=== PATIENT | male | born 1985 | race Caucasian/White ===

== ENCOUNTER 2017-09-23 16:59 | Emergency (ER) | payer OTHER ==
[~2017-09-23 16:59] MED LIST: ALBU8.5H12 IH; CLIN300C99 PO; HYDR-4309 PO; PRED20TA6 PO
--- NOTE | 2017-09-23 17:04 | ER Report ---
History and Physical Time Seen By : 17:03 HPI/ROS CHIEF COMPLAINT: r lower leg pain HISTORY OF PRESENT ILLNESS: Pt had a crush injury to r lower leg when a steal beam landed on lower leg at work in [place]. Pt has fx tib/fib and had surgery in [place]. Pt knows he has pins and a lesley. Pt States that he has been in constant pain since it occurred. ran out of his percocet which was a total of 40 pills. Pt noticed some blood on his splint and called his surgeon in [place] and was told he can look at the suture area. Pt took off his splint and did not see any active bleeding. Rebandaged his leg and still in pain so came to ed. Pt has a recheck appointment in [place] on september 28 which is his first post op appt. Pt states after that appt he is able to change his orthopedist to a local ortho doctor here. Came to ed concerned about the blood and the pain. pt denies sob or cp. no fevers no parathesias REVIEW OF SYSTEMS: Skin: ecchymosis lower leg; sutures/lul Musculoskeletal: R lower leg pain and swelling Allergies: Coded Allergies: Penicillins (Unverified Allergy, Intermediate, RASH, 02/28/14) Home Meds Active Scripts Oxycodone Hcl/Acetaminophen (OXYCODONE-ACETAMINOPHEN 5-325) 1 Each Tablet, 1 EACH PO Q4-6H Y for PAIN, #30 TAB Prov:LAURORAYANIQUEDOUGIE V DO 09/23/17 Oxycodone Hcl/Acetaminophen (OXYCODONE-ACETAMINOPHEN 5-325) 1 Each Tablet, 1 EACH PO Q4-6H Y for pain, #30 TAB Prov:DOUGIE TEJADA V DO 09/23/17 Hydrocodone Bit/Acetaminophen (NORCO 5-325 TABLET) 1 Each Tablet, 1 EACH PO Q6H , #20 TAB Prov:NICOLE FOFANA MD 02/28/14 Clindamycin Hcl (CLINDAMYCIN HCL) 300 Mg Capsule, 300 MG PO TID, #21 CAPSULE Prov:NICOLE FOFANA MD 02/28/14 Reported Medications [stool soft] No Conflict Check 09/23/17 Discontinued Scripts Albuterol Sul Hfa 90 Mcg 8 Gm (VENTOLIN HFA 90 MCG 8 GM) 8.5 Gm Hfa.aer.ad, 2 PUFF IH Q4-6H Y for WHEEZING, #1 INHALER 0 Refills Prov:SHAJI CARRASCO MD 01/09/14 Past Medical/Surgical History pmhx: asthma Pshx: tib/fib fx Reviewed Nurses Notes: Yes Old Medical Records Reviewed: Yes Hx Smoking: Yes Smoking Status: Current: Some Days Smoker Exposure to Second Hand Smoke?: Yes Hx Substance Use Disorder: No Hx Alcohol Use: No Constitutional Vital Sign - Last 24 Hours 09/23/17 17:22 Temp 98.3 Pulse 95 Resp 16 B/P (MAP) 136/88 Pulse Ox 97 O2 Delivery Room Air Physical Exam General Appearance: The patient is alert, has no immediate need for airway protection and no signs of toxicity. Eyes: Pupils equal and round no pallor or injection, EOMI ENT: no pharyngeal erythema or exudates, Mucous membranes are moist Respiratory: There are no retractions, lungs are clear to auscultation. Neurological: Cranial nerves II-XII grossly intact, no sensory or motor loss Skin: + old/yellow appearing ecchymosis r lower leg from knee down; + lul above knee on right are clean and dry; sutures medial aspect of r lower leg are not bleeding and appear dry and intact without erythema Musculoskeletal: Neck is supple non tender, no vertebral tenderness Extremities all extremities excluding the right are nontender, nonswollen and have full range of motion, R lower leg shows non tender thigh; removal of splint with leg stabilization showed swelling to r lower leg with ecchymosis and diffuse tenderness; pulses were symmetrical. cap refil <2 seconds, there is no hardness to the muscle, splint was placed back on DIFFERENTIAL DIAGNOSIS: After history and physical exam differential diagnosis was considered for dvt, post op pain Medical Decision Making ED Course/Re-evaluation ED Course Will xray to check lesley placement. will obtain US to check for any clots due to immobilization and travel. Pt is 12 days post up. Do no suspect rhabdo or compartment syndrome at this time. 09/23/2017 5:53:49 pm Script for percocet initialy sent to [facility]. Pharmacist called and they are out of percocet in all dosages but believe [facility] has the medication. Called [facility]. [facility] does in fact have percocet. Script for 30 pills was canceled by [facility] and [facility] 09/23/2017 6:05:45 pm Pts xrays show the lesley in good placement but the fibula displaced. Pt has imaging from [facility] with him in and it shows the fibula not touching at that time as well. Pt states he feels his leg is unstable. Pts posterior splint is fitting well. will add on a sugar tong splint for pts comfort. signed out to dr. gold pending dvt results. Decision to Disposition Date: September 23, 2017 Decision to Disposition Time: 18:08 Depart Departure Latest Vital Signs Vital Signs Date Time Temp Pulse Resp B/P (MAP) Pulse Ox O2 Delivery O2 Flow Rate FiO2 09/23/17 17:22 98.3 95 16 136/88 97 Room Air Impression: Primary Impression: Leg pain, right Additional Impression: Post-op pain Condition: Improved Disposition: HOME OR SELF-CARE New Scripts Oxycodone Hcl/Acetaminophen (OXYCODONE-ACETAMINOPHEN 5-325) 1 Each Tablet 1 EACH PO Q4-6H Y for PAIN, #30 TAB Prov: DOUGIE TEJADA DO 09/23/17 Oxycodone Hcl/Acetaminophen (OXYCODONE-ACETAMINOPHEN 5-325) 1 Each Tablet 1 EACH PO Q4-6H Y for pain, #30 TAB Prov: DOUGIE TEJADA DO 09/23/17 Patient Instructions: Leg Fracture (DC) Additional Instructions: Keep leg in splint. Elevate, ice and rest. Percocet one or two every 4-6 hours as needed for severe pain. Your script is at [facility]. Keep your appointment with orthopedics on the . Problem Qualifiers DOUGIE TEJADA DO September 23, 2017 17:04
[2017-09-23] MEDS ORDERED: HYDROmorphone* 1 MG/ML 1 MG/ML ML IM ONE (17:20)
[2017-09-23] MEDS ORDERED: PER PO (17:41)
[2017-09-23] MEDS ORDERED: OXYC-373 PO ×2 (17:43→17:54)
[2017-09-23] MEDS ORDERED: STOOL SOFT (17:44)
--- NOTE | 2017-09-23 18:02 | RADIOLOGY IMAGING REPORT ---
FAC[place] [facility] [place]IENT NAME: Bob Lester : 1985 MR: [id number] V: [id number] EXAM DATE: ORDERING PHYSICIAN: DOUGIE TEJADA TECHNOLOGIST: Location: [facility] Patient: Bob Lester : 1985 Visit/Account:[id number] Date of Sevice: 09/23/2017 Right tibia/fibula Indication: Pain. Recent surgery. Comparison: None available Findings: Two views right tibia and fibula. Intramedullary lesley within the tibia with single proximal and 2 distal interlocking screws, traversing a distal tibial shaft fracture which is in anatomic alignment. No visualized hardware complication. Comminuted fracture involving the distal third fibular shaft with approximately 5 mm medial displacem ent of the distal fracture fragment. Soft tissue swelling within the distal calf and ankle. IMPRESSION: 1. Distal tibial fracture with intramedullary lesley without visualized hardware complication. Fracture is in anatomic alignment. 2. Mildly displaced comminuted distal fibular diaphysis fracture. 3. Soft tissue swelling surrounding the distal calf and ankle Report Dictated By: Bill Nuno MD at 09/23/2017 5:56 PM Report E-Signed By: Bill Nuno MD at 09/23/2017 6:00 PM WSN:[id number]
[2017-09-23] MEDS ORDERED: oxyCODONE/ACETAMIN 5/325MG TH 2 TAB/BOTTLE PO ONE (18:15)
[2017-09-23 18:30] VITALS: BP 115/86
--- NOTE | 2017-09-23 18:38 | RADIOLOGY IMAGING REPORT ---
FACILITY: [facility] - [place], [place] PATIENT NAME: Bob Lester : 1985 MR: [id number] V: [id number] EXAM DATE: ORDERING PHYSICIAN: DOUGIE TEJADA TECHNOLOGIST: Location: [facility] - [place] Patient: Bob Lester : 1985 Visit/Account:[id number] Date of Sevice: 09/23/2017 EXAMINATION: VENOUS DOPP LOW RIGHT EXTREMIT COMPARISON: None Available HISTORY: leg pain; recent tib/fib surgery for fx/crush injury FINDINGS: Standard right lower extremity Doppler ultrasound with color flow and spectral analysis is performed. The common femoral, femoral, and popliteal veins are widely patent and compress appropriately. The v isualized calf veins and the proximal greater saphenous vein are patent. No popliteal fluid collection. IMPRESSION: No right lower extremity deep venous thrombosis. Report Dictated By: Joshua Darby MD at 09/23/2017 6:34 PM Report E-Signed By: Joshua Darby MD at 09/23/2017 6:35 PM WSN:[id number]
== END 2017-09-23 18:56 | disposition home or self-care (01) ==
LOC: ER 17:28
DX: G89.18 Other acute postprocedural pain (principal); M79.661 Pain in right lower leg; Z98.890 Other specified postprocedural states
CPT/HCPCS: 73590; 93971; 96372; 99284; J1170

== ENCOUNTER 2017-11-02 11:05 | Emergency (ER) | payer OTHER ==
[~2017-11-02 11:05] MED LIST changes: +OXYC-373 PO; +PER PO; +STOOL SOFT
[2017-11-02] MEDS ORDERED: NS(*) 0.9% 1000 ML BAG 1,000 ML IV ONE (11:34)
--- NOTE | 2017-11-02 11:34 | ER Report ---
History and Physical Time Seen By MD: 11:18 Hx. of Stated Complaint: PATIENT REPORTS HAVING RIGHT LEG SURGERY FOR A TRAUMA THAT HAPPENED IN AUGUST. HE IS REPORTING RIGHT ANKLE SWELLING FOT THE LAST 3 DAYS AND IS ALSO REPORTING THAT HE IS COUGHING UP BLOOD HPI/ROS Chief Complaint: Increased swelling in right leg HPI: 32-year-old male presents with increased right leg swelling and productive cough with some blood. States he had surgery for a tibia and fibula fracture that he sustained while at work. The surgery was completed in [place] on 09/12/17. Reports some difficulty accessing follow up because the event was an out of state workman's compensation. He reports his last ultra-sound and x-ray on 09/23/17 was normal. States, his last orthopedic follow up was 09/28/17 in [place]. He has plans to start physical therapy in late October. Not currently taking any medications. Reports elevation of the extremity usually decreases the swelling but it has not improved for the past three days. State, " something is just off." Reports his cough started about a week ago but he coughed up blood this morning. Reports no associated symptoms, and no treatments tried. ROS: General: denies fevers, chills, or night sweats HEENT: denies headaches, reports mild maxillary sinus pressure, denies sore throat Respiratory: denies shortness of breath CV: denies chest pain GI: denies nausea, vomiting, constipation, or diarrhea : denies changes in urination Musculoskeletal: reports swelling of the right ankle Allergies: Coded Allergies: Penicillins (Unverified Allergy, Intermediate, RASH, 02/28/14) Home Meds Active Scripts Rivaroxaban 15 Mg (XARELTO 15 MG) 15 Mg Tablet, 15 MG PO BID for 21 Days, #42 TAB Prov:KALLIE GRAY 11/02/17 Discontinued Reported Medications [stool soft] No Conflict Check 09/23/17 Discontinued Scripts Oxycodone Hcl/Acetaminophen (OXYCODONE-ACETAMINOPHEN 5-325) 1 Each Tablet, 1 EACH PO Q4-6H Y for PAIN, #30 TAB Prov:LAURORA,DOUGIE V DO 09/23/17 Oxycodone Hcl/Acetaminophen (OXYCODONE-ACETAMINOPHEN 5-325) 1 Each Tablet, 1 EACH PO Q4-6H Y for pain, #30 TAB Prov:LAURORA,DOUGIE V DO 09/23/17 Hydrocodone Bit/Acetaminophen (NORCO 5-325 TABLET) 1 Each Tablet, 1 EACH PO Q6H , #20 TAB Prov:NICOLE FOFANA MD 02/28/14 Clindamycin Hcl (CLINDAMYCIN HCL) 300 Mg Capsule, 300 MG PO TID, #21 CAPSULE Prov:NICOLE FOFANA MD 02/28/14 Past Medical/Surgical History tibia/fibula fracture surgery September 12, 2017 Reviewed Nurses Notes: Yes Hx Smoking: Yes Smoking Status: Current: Some Days Smoker Exposure to Second Hand Smoke?: Yes Hx Substance Use Disorder: No Hx Alcohol Use: No Constitutional Vital Sign - Last 24 Hours 11/02/17 11/02/17 11/02/17 11/02/17 11:11 11:12 11:20 11:30 Temp 98.6 Pulse 86 91 Resp 24 B/P (MAP) 159/100 159/100 (119) 153/106 (122) Pulse Ox 97 97 O2 Delivery Room Air 11/02/17 11/02/17 11/02/17 11/02/17 11:35 12:00 12:05 12:20 Pulse 89 75 71 Resp 9 12 B/P (MAP) 131/93 (106) Pulse Ox 98 98 96 11/02/17 11/02/17 12:30 12:35 Pulse 73 Resp 27 B/P (MAP) 129/90 (103) Pulse Ox 98 Intake and Output 11/02/17 11/02/17 11/03/17 15:00 23:00 07:00 Intake Total 1000 ml Balance 1000 ml Physical Exam Physical Examination: General: 32-year-old male in no acute distress HEENT: normocephalic, atraumatic, pupils round and reactive to light and accommodation, TMs BL gian carey, no rhinorrhea, tonsils 2+ no erythema BL Respiratory: CTA BL CV: Clear S1 S2, no murmurs GI: normoactive BS x4, no tenderness to palpation, no hepatomegaly, no splenomegaly Musculoskeletal: Right ankle with decreased ROM with internal and external rotation as well as, dorsiflexion and plantar flexion, full free ROM of the left lower extremity Differential Diagnoses Considered: DVT, PE, Displacement of the hardware, re- injury, and infection. Medical Decision Making Data Points Result Diagram: 11/02/17 1130 11/02/17 1130 Laboratory Hematology Test 11/02/17 11:30 Red Blood Count 5.79 M/uL (4.00-5.60) Mean Corpuscular Volume 89.2 fL (80.0-96.0) Mean Corpuscular Hemoglobin 31.0 pg (26.0-33.0) Mean Corpuscular Hemoglobin Concent 34.8 g/dL (32.0-36.0) Red Cell Distribution Width 12.3 % (11.5-14.5) Mean Platelet Volume 9.1 fL (7.2-11.1) Neutrophils (%) (Auto) 54.4 % (39.4-72.5) Lymphocytes (%) (Auto) 36.3 % (17.6-49.6) Monocytes (%) (Auto) 5.2 % (4.1-12.4) Eosinophils (%) (Auto) 3.5 % (0.4-6.7) Basophils (%) (Auto) 0.6 % (0.3-1.4) Nucleated RBC Relative Count (auto) 0.1 /100WBC Neutrophils # (Auto) 4.3 K/uL (2.0-7.4) Lymphocytes # (Auto) 2.8 K/uL (1.3-3.6) Monocytes # (Auto) 0.4 K/uL (0.3-1.0) Eosinophils # (Auto) 0.3 K/uL (0.0-0.5) Basophils # (Auto) 0.0 K/uL (0.0-0.1) Nucleated RBC Absolute Count (auto) 0.01 K/uL Sodium Level 138 mmol/L (137-145) Potassium Level 4.0 mmol/L (3.5-5.0) Chloride Level 101 mmol/L (98-107) Carbon Dioxide Level 27 mmol/L (22-30) Blood Urea Nitrogen 10 mg/dl (9-21) Creatinine 1.10 mg/dl (0.66-1.25) Glomerular Filtration Rate Calc > 60.0 Random Glucose 118 mg/dl (75-110) Calcium Level 9.6 mg/dl (8.4-10.2) Total Bilirubin 0.8 mg/dl (0.2-1.3) Aspartate Amino Transf (AST/SGOT) 25 U/L (0-35) Alanine Aminotransferase (ALT/SGPT) 24 U/L (0-56) Alkaline Phosphatase 96 U/L (0-126) Troponin I < 0.012 ng/ml B-Type Natriuretic Peptide 21 pg/ml (0-100) Total Protein 8.0 g/dl (6.3-8.2) Albumin 4.2 g/dl (3.5-5.0) Chemistry Test 11/02/17 11:30 White Blood Count 7.8 k/uL (4.5-11.0) Red Blood Count 5.79 M/uL (4.00-5.60) Hemoglobin 18.0 g/dL (14.0-18.0) Hematocrit 51.7 % (42.0-52.0) Mean Corpuscular Volume 89.2 fL (80.0-96.0) Mean Corpuscular Hemoglobin 31.0 pg (26.0-33.0) Mean Corpuscular Hemoglobin Concent 34.8 g/dL (32.0-36.0) Red Cell Distribution Width 12.3 % (11.5-14.5) Platelet Count 164 K/uL (150-450) Mean Platelet Volume 9.1 fL (7.2-11.1) Neutrophils (%) (Auto) 54.4 % (39.4-72.5) Lymphocytes (%) (Auto) 36.3 % (17.6-49.6) Monocytes (%) (Auto) 5.2 % (4.1-12.4) Eosinophils (%) (Auto) 3.5 % (0.4-6.7) Basophils (%) (Auto) 0.6 % (0.3-1.4) Nucleated RBC Relative Count (auto) 0.1 /100WBC Neutrophils # (Auto) 4.3 K/uL (2.0-7.4) Lymphocytes # (Auto) 2.8 K/uL (1.3-3.6) Monocytes # (Auto) 0.4 K/uL (0.3-1.0) Eosinophils # (Auto) 0.3 K/uL (0.0-0.5) Basophils # (Auto) 0.0 K/uL (0.0-0.1) Nucleated RBC Absolute Count (auto) 0.01 K/uL Glomerular Filtration Rate Calc > 60.0 Calcium Level 9.6 mg/dl (8.4-10.2) Total Bilirubin 0.8 mg/dl (0.2-1.3) Aspartate Amino Transf (AST/SGOT) 25 U/L (0-35) Alanine Aminotransferase (ALT/SGPT) 24 U/L (0-56) Alkaline Phosphatase 96 U/L (0-126) Troponin I < 0.012 ng/ml B-Type Natriuretic Peptide 21 pg/ml (0-100) Total Protein 8.0 g/dl (6.3-8.2) Albumin 4.2 g/dl (3.5-5.0) EKG/Imaging EKG Interpretation ECG obtained at 11:43 results indicate normal sinus rhythm. Imaging CTA CHEST WW/O CNTR (PULM ANG) COMPARISON: None. HISTORY: coughing up blood. TECHNIQUE: Axial CT angiography of the chest with intravenous contrast. Coronal and sagittal reformats. Coronal MIP reconstructions were also created for further evaluation and interpretation. One of the following dose optimization techniques was utilized in the performance of this exam: automated exposure control; adjustment of the mA and/ or kV according to patient size; or use of iterative reconstruction technique. Specific details can be referenced in the facility's radiology CT exam operational policy. CONTRAST: 75 mL of IV Isovue-370. CT CHEST FINDINGS: CARDIAC: Unremarkable. RV/LV ratio is 0.84. MEDIASTINUM/NICKY: No significantly enlarged lymph nodes or mass. Prominent right hilar nodes considered reactive. VASCULATURE: Cardiac pulsation artifact in the ascending aorta. Numerous small pulmonary artery filling defects consistent with acute pulmonary emboli in lobar and segmental branches of the right lower lobe. No left-sided pulmonary emboli to the proximal segmental level. CHEST WALL: Unremarkable. No mass or axillary adenopathy. LUNGS/PLEURA: 2.5 cm region of peripheral consolidation in the right lower lobe consistent with acute pulmonary infarct. 3 mm right upper lobe nodule series 4 image 93, 4 x 5 mm left lower lobe nodule image 189, nonspecific. 3 mm left upper lobe nodule series 4 image 19. No other consolidation and no pleural effusion. Patent central airways. Mild pleural parenchymal scarring in the upper lobes. BONES: Unremarkable. LIMITED ABDOMEN: Unremarkable. OTHER: Negative. IMPRESSION: 1. Multiple small acute lobar and segmental level right lower lobe pulmonary emboli with an associated 2.5 cm pulmonary infarct in the right lower lobe. 2. Small lung nodules measuring up to 4.5 mm average diameter. These are probably benign and incidental. In the absence of risk factors for malignancy or a significant smoking history no follow-up necessary. Results were called to Dr. KALLIE GRAY at 11/02/2017 12:16 PM. Report Dictated By: Ye Grant at 11/02/2017 12:09 PM Report E-Signed By: Ye Grant at 11/02/2017 12:17 PM ED Course/Re-evaluation ED Course 32-year-old patient presents with a three day history of changes in his right ankle and swelling that will not resolve despite elevating the leg. Surgery on September 12 2017 for a tibial and fibula fracture. States for the last week he has had a cough but today he coughed up blood. A history and physical examination were obtained. Differential diagnoses were considered and discussed with the patient. Results are consistent with pulmonary embolism. The patient' s respiratory status remains stable and he will be sent home for home care on Xarelto. He has been encouraged to follow up with his primary care provider. Decision to Disposition Date: Nov 02, 2017 Decision to Disposition Time: 12:58 Depart Departure Latest Vital Signs Vital Signs Date Time Temp Pulse Resp B/P (MAP) Pulse Ox O2 Delivery O2 Flow Rate FiO2 11/02/17 12:35 73 27 98 11/02/17 12:30 129/90 (103) 11/02/17 11:11 98.6 Room Air Impression: Primary Impression: Pulmonary embolism Condition: Improved Disposition: HOME OR SELF-CARE New Scripts Rivaroxaban 15 Mg (XARELTO 15 MG) 15 Mg Tablet 15 MG PO BID for 21 Days, #42 TAB Prov: KALLIE GRAY [employer] 11/02/17 Patient Instructions: Pulmonary Embolism (DC) Additional Instructions: Take Xarelto as directed. Follow up with a primary care provider within the next week to establish care and have them follow up with your treatment. Follow up in [place] with a primary care provider if you are unable to find a primary care provider locally that will accept your insurance. Also, follow up with your physical therapist as discussed. Return to the Emergency Department if you experience any difficulty breathing or if your condition worsens. Return to the Emergency Department if you experience any uncontrollable bleeding or severe bruises. Problem Qualifiers Primary Impression: Pulmonary embolism Pulmonary embolism type: other Chronicity: acute Acute cor pulmonale presence: without acute cor pulmonale Qualified Codes: I26.99 - Other pulmonary embolism without acute cor pulmonale KALLIE GRAY Nov 02, 2017 11:34
[2017-11-02 11:43] LABS: PLATELET COUNT, AUTOMATED 164 K/uL (150-450)
[2017-11-02] MEDS ORDERED: NS 0.9% 25 ML BAG 50 ML ONE (11:47)
[2017-11-02] MEDS ORDERED: IOPAMIDOL 76% 75 ML INFUS BTL 75 ML ONE (11:47)
--- NOTE | 2017-11-02 12:21 | RADIOLOGY IMAGING REPORT ---
FACILITY: [facility] PATIENT NAME: Bob Lester : 1985 MR: [id number] V: [id number] EXAM DATE: ORDERING PHYSICIAN: KALLIE GRAY TECHNOLOGIST: Location: [facility] [place] Patient: Bob Lester : 1985 Visit/Account:[id number] Date of Sevice: 11/02/2017 CTA CHEST WW/O CNTR (PULM ANG) COMPARISON: None. HISTORY: coughing up blood. TECHNIQUE: Axial CT angiography of the chest with intravenous contrast. Coronal and sagittal reform ats. Coronal MIP reconstructions were also created for further evaluation and interpretation. One of the following dose optimization techniques was utilized in the performance of this exam: auto mated exposure control; adjustment of the mA and/or kV according to patient size; or use of iterative reconstruction technique. Specific details can be referenced in the facility's radiology CT exam op erational policy. CONTRAST: 75 mL of IV Isovue-370. CT CHEST FINDINGS: CARDIAC: Unremarkable. RV/LV ratio is 0.84. MEDIASTINUM/NICKY: No significantly enlarged lymph nodes or mass. Prominent right hilar nodes conside red reactive. VASCULATURE: Cardiac pulsation artifact in the ascending aorta. Numerous small pulmonary artery hoang ling defects consistent with acute pulmonary emboli in lobar and segmental branches of the right lowe r lobe. No left-sided pulmonary emboli to the proximal segmental level. CHEST WALL: Unremarkable. No mass or axillary adenopathy. LUNGS/PLEURA: 2.5 cm region of peripheral consolidation in the right lower lobe consistent with acut e pulmonary infarct. 3 mm right upper lobe nodule series 4 image 93, 4 x 5 mm left lower lobe nodule image 189, nonspecific. 3 mm left upper lobe nodule series 4 image 19. No other consolidation and no pleural effusion. Patent central airways. Mild pleural parenchymal scarring in the upper lobes. BONES: Unremarkable. LIMITED ABDOMEN: Unremarkable. OTHER: Negative. IMPRESSION: 1. Multiple small acute lobar and segmental level right lower lobe pulmonary emboli with an associat ed 2.5 cm pulmonary infarct in the right lower lobe. 2. Small lung nodules measuring up to 4.5 mm average diameter. These are probably benign and inciden gumaro. In the absence of risk factors for malignancy or a significant smoking history no follow-up nece ssaelmer. Results were called to Dr. KALLIE GRAY at 11/02/2017 12:16 PM. Report Dictated By: Ye Grant at 11/02/2017 12:09 PM Report E-Signed By: Ye Grant at 11/02/2017 12:17 PM WSN:[id number]
[2017-11-02 12:30] VITALS: BP 129/90
--- NOTE | 2017-11-02 12:42 | EKG ---
FACILITY: [facility] - [place] PATIENT NAME: PAMELA NAYLOR : [id number] MR: [id number] V: [id number] EXAM DATE: ORDERING PHYSICIAN: KALLIE GRAY TECHNOLOGIST: LENY Test Reason : COUGHING UP BLOOD Blood Pressure : / mmHG Vent. Rate : 074 BPM Atrial Rate : 074 BPM P-R Int : 164 ms QRS Dur : 078 ms QT Int : 358 ms P-R-T Axes : 049 076 056 degrees QTc Int : 397 ms Normal sinus rhythm No ST-T abnormalities When compared with ECG of 22-MAR-2014 14:33, Now QRS voltage decreased in limb leads Confirmed by ETELVINA FLETCHER ([id number]) on 11/03/2017 11:10:24 AM Referred By: Confirmed By:ETELVINA FLETCHER
[2017-11-02] MEDS ORDERED: RIVA15TA PO (12:46)
[2017-11-02] MEDS ORDERED: RIVAROXABAN 10 MG TAB PO ONE ×2 (12:50→19:55)
== END 2017-11-02 13:11 | disposition home or self-care (01) ==
LOC: ER 11:15
DX: I26.99 Other pulmonary embolism without acute cor pulmonale (principal); F17.210 Nicotine dependence, cigarettes, uncomplicated
CPT/HCPCS: 71275; 83880; 84484; 85025; 93005; 96360; 99284; J7030; Q9967; 82040; 82247; 82310; 82374; 82435; 82565; 82947; 84075; 84132; 84155; 84295; 84450; 84460; 84520

== ENCOUNTER 2017-12-09 13:58 | Outpatient (RCR) | payer OTHER ==
[~2017-12-09 13:58] MED LIST changes: +RIVA15TA PO
[2017-12-09 14:24] VITALS: BP 150/98
[2017-12-09] MEDS ORDERED: PER PO (14:26)
[2017-12-09] MEDS ORDERED: RIVA20TA PO (16:33)
--- NOTE | 2017-12-09 19:41 | EL-[facility] ONCOLOGY NOTE ---
EVENT DATE: December 09, 2017 DIAGNOSIS Right pulmonary embolus. REFERRING PHYSICIAN Dr. Shari Ordoñez at [facility] REASON FOR CONSULTATION Evaluation and management of right pulmonary embolus. HEMATOLOGY HISTORY Patient is a 32-year-old male. While he was working, had an injury to his right lower extremity with fracture of the tibia and the fibula. The patient had surgery with rods and pins, and he was immobilized for over a month. Patient was prescribed baby aspirin as a prophylaxis against clotting. Nearly 1 -1/2 months after his surgery, he developed swelling and pain in the right lower extremity. After a few days of that, he started to have cough with hemoptysis, so he went to the Emergency Room at [facility] in [place]. The patient had a CTA chest done on the October, which showed multiple small acute lobar and segmental right lower lobe pulmonary emboli with an associated 2.5 cm pulmonary infarct of the right lower lobe. There were also small lung nodules up to 4.5 mm, probably benign. Patient started treatment with Xarelto on the October, initially at 15 mg twice day for three weeks, and he is currently maintained on Xarelto 20 mg daily. He had some improvement after he started anticoagulation. PAST MEDICAL HISTORY 1. Pulmonary embolism of the right lung. 2. Fracture right tibia and fibula after injury to the right lower extremity. PAST SURGICAL HISTORY He had surgery for fracture of right tibia and fibula recently. SOCIAL HISTORY The patient is single with no children. 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 He smoked about one pack a day for nine years, not currently. He drinks occasionally. Denies abuse of illicit drugs. FAMILY HISTORY Negative for cancer or blood diseases. CURRENT MEDICATIONS 1. Percocet p.r.n. for pain. 2. Xarelto 20 mg daily. ALLERGIES PENICILLIN which causes skin reaction. REVIEW OF SYSTEMS CONSTITUTIONAL: No appetite or weight change. No fever, chills, or sweating. No recent infection. HEENT: Ears: No tinnitus or hearing problem. Nose: No nasal discharge or epistaxis. Throat: No sore throat or mouth ulcers. Eyes: No diplopia or visual changes. RESPIRATORY: No shortness of breath. No cough, expectoration or hemoptysis. CARDIOVASCULAR: No chest pain, orthopnea, or paroxysmal nocturnal dyspnea (PND) . No edema. No palpitations. GASTROINTESTINAL: No nausea or vomiting. No diarrhea or constipation. No change in bowel movements. No heartburn or swallowing difficulties. No abdominal pain. No jaundice. No hematemesis, melena or rectal bleeding. GENITOURINARY: No hematuria or dysuria. MUSCULOSKELETAL: No pain in the muscles, joints or bones. NEUROLOGICAL: No tingling or numbness in the hands or feet. No headaches or convulsions. HEMATOLOGIC/LYMPHATIC: Patient bruises easily. No weakness or fatigued. No enlarged lymph nodes. SKIN: No skin rash or lumps. PSYCHIATRIC: No anxiety or depression. PHYSICAL EXAMINATION GENERAL: Looks stable. Well developed, well nourished, and in no acute distress. VITAL SIGNS: Blood pressure 150/98, pulse 73 per minute, respirations 16 per minute, temperature 98.1, pulse ox 98% on room air. HEENT: Head: Atraumatic. No sinus tenderness to palpation. Eyes: No icterus or conjunctivitis. Mouth and throat: No oral thrush or mucositis. NECK: Supple. No cervical or supraclavicular lymphadenopathy. LUNGS: Clear to auscultation and percussion bilaterally. HEART: Regular rate and rhythm. No gallops, murmurs, clicks or rubs. ABDOMEN: Soft and lax. No tenderness. No hepatosplenomegaly. No masses. EXTREMITIES: No cyanosis, clubbing, or edema. LYMPHATICS: No peripheral lymphadenopathy. NEUROLOGICAL: Conscious, alert, and oriented times three. No focal motor or sensory deficits. PSYCHIATRIC: Mood and affect appear normal. SKIN: No skin rash, bruise, or purpuric eruption. ASSESSMENT Induced right pulmonary embolus after injury of the right lower extremity, diagnosed by CTA chest done on the October, which showed multiple small, acute lobar and segmental right lower lobe pulmonary emboli with associated 2.5 cm pulmonary infarct of the right lower lobe. Patient has started Xarelto on the October and tolerated treatment well with improvement of his symptoms. Given that his first episode of venous thromboembolism is induced, no indication for requesting thrombophilia workup. Given that the patient has pulmonary embolism, I am planning to continue anticoagulation for a total of six months. I am planning to see him again by mid April at the time when we will stop his blood thinner. I explained that to the patient. Patient is agreeable with the plan of management. PLAN 1. Continue Xarelto 20 mg up to mid April. 2. Patient to return in mid April for further evaluation and management. 3. Patient to contact us for any new concern or complaints. MTDD
[2017-12-13] MEDS ORDERED: CEFD300C35 PO (15:42)
== END 2017-12-15 13:58 | disposition home or self-care (01) ==
LOC: ONC 13:58
PROVIDERS: ATTEND Internal Medicine Hematology
DX: I26.99 Other pulmonary embolism without acute cor pulmonale (principal); Z79.01 Long term (current) use of anticoagulants; Z87.891 Personal history of nicotine dependence
CPT/HCPCS: 99202

== ENCOUNTER 2017-12-13 15:14 | Emergency (ER) | payer SELFPAY ==
[~2017-12-13 15:14] MED LIST changes: +RIVA20TA PO
--- NOTE | 2017-12-13 15:25 | ER Report ---
History and Physical Time Seen By MD: 15:24 Hx. of Stated Complaint: PT FCHIPPED A TOOTH LAST WEEK. TODAY NOTED INCREASED PAIN AND SWLLING TO R SIDE OF FACE HPI/ROS Source of History: The Patient Chief Concern: tooth pain History of Present Illnesses: 32-year-old patient states that when he woke up this morning he had a tooth abscess. States that three hours ago he noticed it exploded and he spit out puss. Reports that the has been using a heating pad and salt-water mouth rinses which lead to it "exploding" and subsequently feeling better. Reports right sided sinus pressure and pain. Reports his left face was swollen when he woke up but has improved. Denies any other associated symptoms, denies any other treatments tried. ROS: Constitutional: Denies recent illness, malaise, chills, fever. HEENT: Denies headache. Reports sinus congestion. Reports sinus pain. Cardiovascular: Denies chest pain. Respiratory: Reports shortness of breath or difficulty breathing. Gastrointestinal System: Denies nausea, vomiting, diarrhea or constipation Genitourinary: Denies changes in urination Allergies: Coded Allergies: Penicillins (Unverified Allergy, Intermediate, RASH, 12/13/17) Home Meds Active Scripts Cefdinir 300 Mg Cap (OMNICEF 300 MG CAP (OR EQUIV)) 300 Mg Capsule, 300 MG PO BID for 10 Days, #20 CAPSULE Prov:KALLIE GRAYP 12/13/17 Reported Medications Rivaroxaban 20 Mg (XARELTO 20 MG) 20 Mg Tablet, 20 MG PO DAILY, TAB 12/09/17 Discontinued Reported Medications Oxycodone/Acetaminophen (OXYCODONE/ACETAMINOPHEN 5MG/325 MG) 5 Mg/325 Mg Tab, 5 MG PO PRN 12/09/17 Discontinued Scripts Rivaroxaban 15 Mg (XARELTO 15 MG) 15 Mg Tablet, 15 MG PO BID for 21 Days, #42 TAB Prov:KALLIE GRAY 11/02/17 Past Medical/Surgical History Past Medical History: asthma diagnosed as a child Past Surgical History: right tibia/fibula repair 08/2017 Reviewed Nurses Notes: Yes Hx Smoking: Yes Smoking Status: Current: Some Days Smoker Exposure to Second Hand Smoke?: Yes Hx Substance Use Disorder: No Hx Alcohol Use: No Constitutional Vital Sign - Last 24 Hours 12/13/17 12/13/17 15:17 15:50 Temp 97.7 Pulse 78 Resp 16 B/P (MAP) 142/112 145/109 (121) Pulse Ox 99 Physical Exam Constitutional: 32-year-old male in no acute distress. HEENT: Normocephalic and atraumatic, right upper canine with erythema and inflammation, poor dentition throughout, uvula midline, tonsils without erythema or exudate, right maxillary sinus with pain on palpation Neck: Neck supple, erect, trachea midline, no masses. Lymph nodes- cervical chain, pre-and post-auricular, occipital, mandibular, and submental lymph nodes non-tender and non-palpable. Cardiovascular: PMI - left midclavicular at the 5th ICS. Aortic, pulmonic, tricuspid, and mitral areas - clear S1/S2; no murmur, no S3, or S4. Respiratory: Respiratory Excursion BL equal and symmetrical; no presence of lag ; quiet, rhythmic and effortless. No retractions. BL clear and equal. Differential Diagnoses: dental abscess, parotid infection, tonsillary abscess. Medical Decision Making ED Course/Re-evaluation ED Course 32-year-old male presents the emergency department with complaints of dental pain. History and physical examination obtained. Differential diagnoses considered and shared with the patient. It was mutually decided to treat for dental abbess and sinusitis with antibiotics and have him follow up with his desired dentist as soon as possible. He does have an allergy to penicillins so cefdinir was prescribed over Augmentin. The patient states no further concerns and agrees to the plan. He has further been encouraged to return to the emergency department if his condition worsens. Decision to Disposition Date: Dec 13, 2017 Decision to Disposition Time: 15:45 Depart Departure Latest Vital Signs Vital Signs Date Time Temp Pulse Resp B/P (MAP) Pulse Ox O2 Delivery O2 Flow Rate FiO2 12/13/17 15:50 145/109 (121) 12/13/17 15:17 97.7 78 16 99 Impression: Primary Impression: Dental abscess Condition: Condition Unchanged Disposition: HOME OR SELF-CARE New Scripts Cefdinir 300 Mg Cap (OMNICEF 300 MG CAP (OR EQUIV)) 300 Mg Capsule 300 MG PO BID for 10 Days, #20 CAPSULE Prov: KALLIE GRAY 12/13/17 Patient Instructions: Dental Abscess (ED) Additional Instructions: Take entire course of antibiotics. Take one dose in the morning and one at night for 10 days. Take ibuprofen for pain as needed. Continue to use sinus and mouth washes. Return to the emergency department if your condition worsens. Get in to see your desired dentist as soon as possible. KALLIE GRAY Dec 13, 2017 15:25
[2017-12-13] MEDS ORDERED: CEFD300C35 PO (15:42)
[2017-12-13 15:50] VITALS: BP 145/109
== END 2017-12-13 15:52 | disposition home or self-care (01) ==
LOC: ER 15:26
DX: K04.7 Periapical abscess without sinus (principal); J32.9 Chronic sinusitis, unspecified
CPT/HCPCS: 99282

== ENCOUNTER 2018-05-18 09:24 | Outpatient (RCR) | payer OTHER ==
[~2018-05-18 09:24] MED LIST changes: +CEFD300C35 PO; -HYDR-4309 PO; +HYDR-653 PO
[2018-05-18 09:32] VITALS: BP 137/97
--- NOTE | 2018-05-18 10:28 | [facility] ONCOLOGY NOTE ---
EVENT DATE: May 18, 2018 DIAGNOSIS Right pulmonary embolus. CHIEF COMPLAINT Patient is here today for followup of his pulmonary embolus on the right side. HEMATOLOGY HISTORY Patient is a 32-year-old male. While he was working, had an injury to his right lower extremity with fracture of the tibia and the fibula. The patient had surgery with rods and pins, and he was immobilized for over a month. Patient was prescribed baby aspirin as a prophylaxis against clotting. Nearly 1-1/2 months after his surgery, he developed swelling and pain in the right lower extremity. After a few days of that, he started to have cough with hemoptysis, so he went to the Emergency Room at [facility] in [place]. The patient had a CTA chest done on November 04, 2017, which showed multiple small acute lobar and segmental right lower lobe pulmonary emboli with an associated 2.5 cm pulmonary infarct of the right lower lobe. There were also small lung nodules up to 4.5 mm, probably benign. Patient started treatment with Xarelto on November 02, 2017, initially at 15 mg twice day for three weeks, and he is currently maintained on Xarelto 20 mg daily. He had some improvement after he started anticoagulation. Patient completed six months of anticoagulation on May 18, 2018. HISTORY OF PRESENT ILLNESS Patient is here today for followup of his right pulmonary embolus. He is doing fine currently. He finished six months of anticoagulation with Xarelto. He has only dry cough and denies any other complaints. PAST MEDICAL HISTORY 1. Pulmonary embolism of the right lung. 2. Fracture right tibia and fibula after injury to the right lower extremity. PAST SURGICAL HISTORY He had surgery for fracture of right tibia and fibula recently. SOCIAL HISTORY The patient is single with no children. 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 He smoked about one pack a day for nine years, not currently. He drinks occasionally. Denies abuse of illicit drugs. FAMILY HISTORY Negative for cancer or blood diseases. CURRENT MEDICATIONS Percocet p.r.n. for pain. ALLERGIES PENICILLIN which causes skin reaction. REVIEW OF SYSTEMS CONSTITUTIONAL: No appetite or weight change. No fever, chills, or sweating. No recent infection. HEENT: Ears: No tinnitus or hearing problem. Nose: No nasal discharge or epistaxis. Throat: No sore throat or mouth ulcers. Eyes: No diplopia or visual changes. RESPIRATORY: He has dry cough. CARDIOVASCULAR: No chest pain, orthopnea, or paroxysmal nocturnal dyspnea (PND). No edema. No palpitations. GASTROINTESTINAL: No nausea or vomiting. No diarrhea or constipation. No change in bowel movements. No heartburn or swallowing difficulties. No abdominal pain. No jaundice. No hematemesis, melena or rectal bleeding. GENITOURINARY: No hematuria or dysuria. MUSCULOSKELETAL: No pain in the muscles, joints or bones. NEUROLOGICAL: No tingling or numbness in the hands or feet. No headaches or convulsions. HEMATOLOGIC/LYMPHATIC: Patient bruises easily. No weakness or fatigued. No enlarged lymph nodes. SKIN: No skin rash or lumps. PSYCHIATRIC: No anxiety or depression. PHYSICAL EXAMINATION GENERAL: Looks stable. Well developed, well nourished, and in no acute distress. VITAL SIGNS: Blood pressure 137/97, pulse 80 per minute, respirations 16 per minute, temperature 98.6, pulse ox 99% on room air. HEENT: Head: Atraumatic. No sinus tenderness to palpation. Eyes: No icterus or conjunctivitis. Mouth and throat: No oral thrush or mucositis. NECK: Supple. No cervical or supraclavicular lymphadenopathy. LUNGS: Clear to auscultation and percussion bilaterally. HEART: Regular rate and rhythm. No gallops, murmurs, clicks or rubs. ABDOMEN: Soft and lax. No tenderness. No hepatosplenomegaly. No masses. EXTREMITIES: No cyanosis, clubbing, or edema. LYMPHATICS: No peripheral lymphadenopathy. NEUROLOGICAL: Conscious, alert, and oriented times three. No focal motor or sensory deficits. PSYCHIATRIC: Mood and affect appear normal. SKIN: No skin rash, bruise, or purpuric eruption. ASSESSMENT Induced right pulmonary embolus after injury of the right lower extremity, diagnosed by CTA chest done on November 04, 2017, which showed multiple small, acute lobar and segmental right lower lobe pulmonary emboli with associated 2.5 cm pulmonary infarct in the right lower lobe. Patient started treatment with Xarelto on November 02, 2017, and tolerated treatment very well. He completed six months of anticoagulation on May 18, 2018. As his blood clotting was induced due to his trauma, no thrombophilia workup is requested. Patient was advised to avoid prolonged sitting and if he is traveling patient was advised to walk around every hour to make his circulation walking. I told him to contact the office if he develops another blood clot in the future and if this would happen I am planning to check his thrombophilia workup and patient could be a candidate for life-long anticoagulation if he has an underlying cause for his blood clotting. Patient understands the plan and he is happy to stop his anticoagulation. PLAN 1. Stop Xarelto. 2. Patient to return p.r.n. 3. Patient to contact us for any new concern or complaints. IAN
== END 2018-06-26 12:42 | disposition home or self-care (01) ==
LOC: ONC 09:24
PROVIDERS: ATTEND Internal Medicine Hematology
DX: I26.99 Other pulmonary embolism without acute cor pulmonale (principal); Z79.01 Long term (current) use of anticoagulants; Z87.891 Personal history of nicotine dependence
CPT/HCPCS: 99212